=== PATIENT | male | born 1990 | race Caucasian/White ===

== ENCOUNTER 2023-12-31 13:15 | Emergency (ER) | payer SELFPAY ==
[~2023-12-31] VITALS: Ht 193 cm; Wt 118.2 kg
[2023-12-31 13:26] VITALS: BP 132/86; TEMP 98.6
[2023-12-31] MEDS ORDERED: PERCOCET 325 MG1 TA2 PO ×2 (15:54→19:19)
[2023-12-31] MEDS ORDERED: oxyCODONE/Acetaminophen 5-325 MG TAB PO ONE (16:00)
[2023-12-31 16:09] VITALS: PULSE 91
== END 2023-12-31 16:10 | disposition home or self-care (01) ==
LOC: COL.ER 13:15
DX: M79.605 Pain in left leg (principal); Z87.828 Personal history of other (healed) physical injury and trauma

== ENCOUNTER 2024-02-11 00:51 | Emergency (ER) | payer MEDICAID ==
[~2024-02-11] VITALS: Ht 193 cm; Wt 118.2 kg
[~2024-02-11 00:51] MED LIST: PERCOCET 325 MG1 TA2 PO
[2024-02-11] MEDS ORDERED: Sulfamethoxazole/Trimethoprim 400-80 MG TAB PO ONE (01:30)
[2024-02-11] MEDS ORDERED: cefTRIAXone 2 G,Lidocaine PF 1% 4.2 ML IM ONE (01:30)
[2024-02-11] MEDS ORDERED: Ketorolac 30 MG/ML VIAL IM ONE (01:30)
[2024-02-11] MEDS ORDERED: Sulfamethoxazole/Trimethoprim 800-160 MG TAB PO ONE (02:00)
[2024-02-11] MEDS ORDERED: CEPHALEXIN500 M1 PO ×2 (02:02→10:31)
[2024-02-11] MEDS ORDERED: BACTRIM DS 8001 TAB PO ×2 (02:02→10:31)
[2024-02-11 02:16] VITALS: BP 144/75; PULSE 85; TEMP 98
== END 2024-02-11 02:16 | disposition home or self-care (01) ==
LOC: COL.ER 00:51
DX: S80.02XA Contusion of left knee, initial encounter (principal); L03.116 Cellulitis of left lower limb; W20.8XXA Other cause of strike by thrown, projected or falling object, initial encounter; Y92.89 Other specified places as the place of occurrence of the external cause; Y99.0 Civilian activity done for income or pay
CPT/HCPCS: J0696; J1885